=== PATIENT | female | born 1965 | race Caucasian/White ===

== ENCOUNTER 2022-02-04 15:20 | Emergency (ER) | payer OTHER, SELFPAY ==
[2022-02-04 15:21] VITALS: BP 122/82; PULSE 87; RESP 18; TEMP 36.2; O2SAT 98; BMI 24.9
--- NOTE | 2022-02-04 15:42 | CT_ITS ---
HISTORY: dysphagia, odynophagia. TECHNIQUE: Helically acquired images were obtained of the neck after the intravenous administration of 75 mL Isovue 300. A radiation dose optimization technique was used for this scan. 261 images. COMPARISON: None. FINDINGS: NASOPHARYNX: Unremarkable. SUPRAHYOID NECK: Unremarkable oropharynx, oral cavity, parapharyngeal space, and retropharyngeal space. INFRAHYOID NECK: Unremarkable larynx, hypopharynx, and supraglottis. THYROID/SALIVARY GLANDS: Homogeneous. LYMPH NODES: Scattered small nodes without pathologic enlargement. VASCULAR STRUCTURES: Patent bilateral carotid arteries and internal jugular veins. ORBITS: Symmetric contents. PARANASAL SINUSES, MASTOID AIR CELLS: Visualized portions clear. OSSEOUS STRUCTURES: Mild degenerative changes of the cervical spine. Small bone island in the T4 vertebral body. LUNG APICES: Clear. CT/Soft Tissue Neck WITH Contrast IMPRESSION: Unremarkable examination. No acute abnormality identified. Electronically Signed: Dahlia Hernandez MD at 16:56 EDT ,
--- NOTE | 2022-02-04 15:42 | CT_ITS ---
HISTORY: mental status change. TECHNIQUE: Multiple axial images were obtained of the head before and after the intravenous administration of 75 mL Isovue 300. A radiation dose optimization technique was used for this scan. 469 images. COMPARISON: None. FINDINGS: BRAIN PARENCHYMA: No significant attenuation abnormality. No enhancing mass in the brain parenchyma. No acute intra-axial hemorrhage. CSF SPACES: Cerebral ventricles, cortical sulci, and other extra-axial CSF spaces within normal limits in size for patient''s age. No midline shift or other significant mass effect. No acute extra-axial hemorrhage. CALVARIUM: Intact. PARANASAL SINUSES AND MASTOID AIR CELLS: Clear. ORBITS: Unremarkable. CT/Brain/Head W/WO Contrast IMPRESSION: No acute intracranial process or enhancing intracranial mass identified. Electronically Signed: Dahlia Hernandez MD at 16:49 EDT ,
--- NOTE | 2022-02-04 15:48 | EDS_ITS ---
HPI History of Present Illness Chief Complaint: General Illness Informant: patient and family Onset/Context/Timing Onset: Month(s) (4-5) Context: Gradual Onset Timing: Intermittent Quality: sore lump in neck Current Severity: Gone Maximum Severity: Moderate Worsened by: unk Relieved by: unk Associated Symptoms Associated Symptoms: inappropriate laughing outbursts, trouble swallowing Narrative Narrative: Family brings in patient, unsure what else to do. She has had for 5 months worth of problems swallowing, which is sometimes painful and other times results and inability to get pills or food down, and occasional painful lump that occurs on the right side of the neck but is not there currently, occasional discomfort pointing at the manubrium, and for the past year or so, inappropriate outbursts of laughing. For the last 2 months or so, her affect has really changed, and she has had a significant decline, being relatively altered. She states they went to the family doctor, they did some blood work and a thyroid uptake test that was unremarkable, they were referred to a specialist of unknown specialty, but before they went there they decided to come here to request some imaging. She has never had any medical problems and is always been healthy, and this decline is new and very abnormal. PFSH PFSH Medical History no medical history no medical history Home Medications NK 02/04/22 [History Last Taken Unknown] Allergy/AdvReac Type Severity Reaction Status Date / Time No Known Allergies Allergy Verified 02/04/22 15:21 Surgical History no surgical history no surgical history Social History Smoking Status: Never smoker ROS ROS ED Constitutional Constitutional ED: Reports anorexia, weight loss and other Details: Hair loss ; Denies chills or fever(s) Eyes Eyes: Denies change in vision or diplopia ENT ENT ED: Reports as per HPI, dysphagia, hoarseness and neck mass; Denies rhinorrhea or sore throat Cardiovascular Cardiovascular: Denies chest pain or palpitations Respiratory/Chest Respiratory/Chest: Denies cough or dyspnea Gastrointestinal Gastrointestinal: Denies abdominal pain, diarrhea, nausea or vomiting Genitourinary Genitourinary ED: Denies dysuria or hematuria Musculoskeletal Musculoskeletal: Denies back pain or neck pain Integumentary Denies abscess or rash Neurologic Neurologic: Denies headache(s), paresthesias or weakness Psychiatric Psychiatric: Reports as per HPI and behavioral changes; Denies anxiety or suicidal thoughts EXAM Physical Exam Const Vital Signs: 02/04/22 15:21 02/04/22 16:26 Temperature 97.2 F L Temperature Source Temporal Pulse Rate 87 Respiratory Rate 18 Respiratory Effort Normal Respiratory Pattern Normal Blood Pressure 122/82 H Blood Pressure Mean 95 Pulse Ox 98 Oxygen Delivery Method Room Air Positive well nourished and well developed General Appearance ED: well developed and NAD HEENT Reports moist mucous membranes HEENT Narrative: Patchy alopecia normocephalic and atraumatic Mouth ED: Yes lips normal and Yes tongue normal Mouth: lips normal, tongue normal and other Other Details: No sublingual edema/tenderness/fullness Throat: posterior oropharynx normal, tonsils normal and uvula midline Eyes PERRL and EOMs intact bilaterally Neck full ROM, no lymphadenopathy, supple, no meningeal signs and thyroid normal Resp normal respiratory effort and clear to auscultation bilaterally Cardio regular rate, regular rhythm and no murmurs GI non-tender and non-distended Auscultation: normoactive bowel sounds Palpation: soft Back/Spine no CVA tenderness General Back: other FROM Extremity normal to inspection General Extremety ED: Negative for edema, pulses abnormal or tenderness General Extremity: Negative for edema or pulses abnormal Neuro oriented x3, CN's II-XII intact bilaterally and no sensory deficits noted Neuro Narrative: Disoriented to time and age, otherwise NIHSS is unremarkable for a total score of 2. Sensorium / Orientation: awake and alert Motor Exam: strength 5/5 throughout Psych Psych Narrative: Odd, flat affect. Skin no rashes or lesions noted and no wounds MDM MDM MDM Narrative Medical decision making narrative: Patient displayed symptoms of pseudobulbar affect, differential diagnosis with this and some of her other symptoms is wide and does include dementia/Alzheimer's in addition to ALS, brain masses, epilepsy, MS, neurosyphilis felt to be less likely, Parkinson's although she does not have a resting tremor at this time, progressive supranuclear palsy, strokes, and also has been seen in cases of Unruly disease; this is not an exclusive list I am sure. I performed labs as well as thyroid function all of that was normal. I also did a CT of the head and neck soft tissues both with IV contrast. They were normal. That rules out etiologies such as brain masses and stroke, I think she needs to follow-up, she may need an outpatient MRI to rule out some of these other etiologies, although dementia would be high on my list. I discussed this with her and family. Lab Data Attestation: I reviewed the patient's lab results. Labs: Laboratory Results - last 24 hr 02/04/22 02/04/22 16:00 16:00 WBC 5.8 RBC 4.00 L Hgb 13.0 Hct 37.8 MCV 94.5 MCH 32.5 H MCHC 34.4 RDW Std Deviation 42.5 RDW Coeff of Bryce 12.2 Plt Count 276 MPV 10.1 Immature Gran % (Auto) 0.200 Neut % (Auto) 57.2 Lymph % (Auto) 34.9 [place] % (Auto) 6.5 Eos % (Auto) 0.7 Baso % (Auto) 0.5 Absolute Neuts (auto) 3.3 Absolute Lymphs (auto) 2.03 Nucleated RBC % 0 Sodium 141 Potassium 3.8 Chloride 110 H Carbon Dioxide 26.0 Anion Gap 5 BUN 15 Creatinine 0.92 Estim Creat Clear Calc 47.88 Est GFR (MDRD) Af Amer 81 Est GFR (MDRD) Non-Af 67 BUN/Creatinine Ratio 16.3 Glucose 101 Calcium 9.2 TSH 2.18 Free T4 1.17 Radiography Diagnostic Testing: Clinical Impression(s) from Imaging Studies Brain CT 02/04/22 15:42 IMPRESSION: No acute intracranial process or enhancing intracranial mass identified. Electronically Signed: Dahlia Hernandez MD at 16:49 EDT Reading Location ID and State: [facility] / [place] Tel , Service support , Soft Tissue Neck CT 02/04/22 15:42 IMPRESSION: Unremarkable examination. No acute abnormality identified. Electronically Signed: Dahlia Hernandez MD at 16:56 EDT , Discharge Plan Triage Chief Complaint: General Illness ED Provider: Jaswinder Womack Dx/Rx/DC Orders Clinical Impression: PBA (pseudobulbar affect), Dysphagia, Altered mental status, Intermittent headache Instructions: ED DEMENTIA Alzheimer's, ED Confusion Prescriptions: No Action NK RF: 0 Primary Care Provider: Travis Harris Referrals: Travis Harris, [Primary Care Provider] - As soon as possible Disposition Disposition: Home, Self Care
[2022-02-04 16:17] LABS: Absolute Lymphocyte Count 2.03 X10^3/uL (0.83-4.51); Absolute Neutrophil Count 3.3 X10^3/uL (2.0-7.7); Basophil# 0.03 X10^3/uL; Basophil% 0.5 % (0-1); Eosinophil# 0.04 X10^3/uL; Eosinophils% 0.7 % (0-5); Hematocrit 37.8 % (37-47); Lymphocyte # 2.03 X10^3/ul (0.83-4.51); Lymphocyte % 34.9 % (19-41); Mean Corp Hgb Conc 34.4 g/dL (32-36); Mean Corpuscular Hgb 32.5 pg (27.0-32.0); Mean Corpuscular Volume 94.5 fL (81-99); Mean Platelet Vol. 10.1 fl (6.2-12.0); Monocyte# 0.38 X10^3/uL; Monocyte% 6.5 % (0-10); NRBC Flagged by Analyzer 0 % (0-5); Neutrophil # 3.33 X10^3/uL (2.7-7.7); Neutrophil % 57.2 % (47-70); Platelet Count 276 K/mm3 (150-450); RBC Distribution Width CV 12.2 % (11.6-14.6); RBC Distribution Width SD 42.5 fl (35.1-43.9); White Blood Count 5.8 K/mm3 (4.4-11.0)
[2022-02-04 16:47] LABS: Anion Gap 5 (5-15); BUN 15 mg/dL (7-18); BUN/Creat Ratio 16.3 RATIO (10-20); Calcium,Total 9.2 mg/dL (8.5-10.1); Chloride 110 mmol/L (98-107); Creatinine, Serum 0.92 mg/dL (0.55-1.02); EST Glomerular Filtration Rate 67 mL/min (>60); Est Glom Filt Rate - Afr Amer 81 mL/min (>60); Estimated Creatinine Clearance 47.88 ml/min; Glucose 101 mg/dL (74-106); Potassium 3.8 mmol/L (3.5-5.1); Sodium Level 141 mmol/L (136-145); T4 Free Direct 1.17 ng/dL (0.76-1.46); Thyroid Stim Hormone (TSH) 2.18 uIU/mL (0.358-3.74)
[2022-02-04] MEDS: 0.9% Normal Saline 1,000 ML 999 ML IV (17:02)
[2022-02-04 18:03] VITALS: BP 134/78; PULSE 75; RESP 16; O2SAT 99
[2022-02-04 18:06] LABS: T3 Total - Triiodothyronine 0.98 ng/mL (0.6-1.81)
== END 2022-02-04 18:04 | disposition home or self-care (01) ==
PROVIDERS: Emergency Provider Emergency Medicine; PCP Family Medicine; Visit Provider Emergency Medicine
DX: F48.2 Pseudobulbar affect (principal); R13.10 Dysphagia, unspecified; R51.9 Headache, unspecified; R41.82 Altered mental status, unspecified
CPT/HCPCS: 70470; 70491; 80048; 84439; 84443; 84480; 85025; 96360; 99283; J7030; Q9967; A4216

== ENCOUNTER → 2022-02-11 | Outpatient (CLI) | payer SELFPAY, OTHER ==
--- NOTE | 2022-02-11 06:38 | MRI_ITS ---
EXAM: MR HEAD WITHOUT AND WITH INTRAVENOUS CONTRAST CLINICAL INDICATION: ALTERED MENTAL STATUS, PSUEDOBULBAR AFFECT, ?MS TECHNIQUE: Multiplanar and multisequence MR images of the brain were obtained without and with intravenous contrast. This report was created using [employer] report Loco2 technology. CONTRAST: 15ML IV DOTAREM COMPARISON: CT brain February 04, 2022 FINDINGS: BRAIN AND EXTRA-AXIAL SPACES: Unremarkable. No intra- or extra-axial hemorrhage. No evidence of acute infarct. No intracranial mass or mass effect. There is preservation of the ryan/white matter interface. Posterior fossa structures are unremarkable. Ventricles are appropriate for age. No hydrocephalus. Basal cisterns are patent. No abnormal contrast enhancement. SELLA: Unremarkable. Normal sella turcica, pituitary gland, infundibular stalk, optic chiasm and hypothalamus. AUDITORY SYSTEM: Unremarkable. The internal auditory canals are patent. BONES/JOINTS: Unremarkable. No discrete lytic or blastic abnormalities. SINUSES: Unremarkable as visualized. Clear. MASTOID AIR CELLS: Unremarkable as visualized. Clear. ORBITS: Unremarkable as visualized. Both globes, extraocular muscles, optic nerves and retrobulbar fat appear unremarkable. VASCULATURE: Unremarkable as visualized. Normal flow voids in the major intracranial circulation. MRI/Brain W/WO Contrast IMPRESSION: No acute intracranial abnormality. Electronically Signed: Temo Goodman MD at 14:21 EDT ,
== END | disposition home or self-care (01) ==
LOC: MRI 06:33
PROVIDERS: PCP Family Medicine; Referring Provider Emergency Medicine; Visit Provider Emergency Medicine
DX: R41.82 Altered mental status, unspecified (principal); F48.2 Pseudobulbar affect
CPT/HCPCS: 70553; A9575

== ENCOUNTER → 2022-03-18 | Outpatient (CLI) | payer OTHER, SELFPAY | END | disposition home or self-care (01) | LOC: RAD 12:50 | PROVIDERS: PCP Family Medicine; Visit Provider Psychiatry & Neurology Neurology | DX: R13.10 Dysphagia, unspecified (principal); G20 Parkinson's disease; F03.90 Unspecified dementia, unspecified severity, without behavioral disturbance, psychotic disturbance, mood disturbance, and anxiety | CPT/HCPCS: 74230 ==

== ENCOUNTER 2022-04-03 09:30 | Outpatient (RCR) | payer SELFPAY, OTHER ==
--- NOTE | 2022-03-18 12:07 | ST.MBS ---
Modified Barium Swallow - Patient Information Study Date: 03/18/22 Study Time: 13:00 Direct Billable Minutes: 90 Total Minutes procedure & reportin Diagnosis: Parkinson's disease (G20) Referring Physician: Rich Rosas Reason for Referral: Objectively assess swallow function, risk for aspiration, and determine recommendations for least restrictive diet textures and compensatory strategies to improve safety of swallow. Medical History: The patient is an 56-year-old female with PMH including febrile seizure during infancy and developmental motor and cognitive delays. 03/07/2022 she saw neurologist, Dr. Rosas, who diagnosed her with PD. Since 2018, she has exhibited a cognitive decline from her baseline per family. She also presented to neurologist with fatigue, masklike face, and motor restlessness. In September 2021, she began experiencing daily headaches. She also has had increased difficulty swallowing, throat pain, drooling and weight loss (16 lbs in the last 2 months). She was seen by an ENT about throat pain and the evaluation was unremarkable per the patient's family. In addition, the patient has recently had episodes of inappropriate laughter. She was referred for a MBSS by her neurologist to evaluate swallow function due to concerns for difficulty with coordination swallowing. Per pt's caregiver, Shayla Hernandez, Radha has had coughing with food and drink at home. She sometimes feels that food or medications are stuck in her throat. No hx of PNA, but the patient has been more ill in the past year than she typically is. She takes medication with pulpy OJ. Current Diet Ordered: Regular / Thin Dentition: WNL Mental Status: WNL Respiratory Status: Oxygenating on Room Air - Penetration-Aspiration Scale Penetration-Aspiration Scale: OBJECTIVE ASSESSMENT OF SWALLOW FUNCTION (QUANTITATIVE ? PER TRIAL): PENETRATION / ASPIRATION SCALE (GARCIA): 1 = does not enter airway 2 = enters airway/above vocal folds/ejected 3 = enters airway/above vocal folds/not ejected 4 = enters airway/contacts vocal folds/ejected 5 = enters airway/contacts vocal folds/not ejected 6 = enters airway/below vocal folds/ejected 7 = enters airway/below vocal folds/not ejected despite effort 8 = enters airway/below vocal folds/no effort VIDEOFLOROSCOPIC SCALE SCORE (GARCIA): Grade I = aspiration of material that has penetrated into the laryngeal vestibule, intact cough reflex Grade II = aspiration < 10 % of the bolus, intact cough reflex Grade III = aspiration of < 10 % of the bolus, reduced cough reflex or aspiration of > 10 % of the bolus, intact cough reflex Grade IV = aspiration of > 10 % of the bolus, reduced cough reflex - Penetration-Aspiration Scale Score Thin Liquid via teaspoon Result: 7= enters airways/below vocal folds/not ejected despite effort Comment: Grade III = aspiration of < 10 % of the bolus, reduced cough reflex Thin Liquid via teaspoon Trial 2 Result: 1= does not enter airway Thin Liquid via small single sip from cup Result: 1= does not enter airway Thin Liquid via sequential sips from cup Result: 5= enters airways/contacts vocal folds/not ejected [place] Thick Liquid via small single sip from cup Result: 1= does not enter airway - Post prandial penetration of nectar thick liquids visible during next trial. Honey Thick Liquid via small single sip from cup Result: 3= enters airways/above vocal folds/not ejected Pudding via teaspoon with esophageal screen Result: 1= does not enter airway 1/2 Cookie Result: 1= does not enter airway Thin Liquid via single sip from straw Result: 5= enters airways/contacts vocal folds/not ejected - cued cough and re-swallow to clear laryngeal vestibule of residue, weak volitional cough Thin Liquid via small single sip from cup Trial 2 Result: 1= does not enter airway - Post prandial penetration observed in following trial Barium Tablet with water Comment: Could not score - tablet did not clear from the patient's oral cavity. Barium Tablet with pudding Result: 1= does not enter airway - Cleared from oral cavity with 2 swallows Thin Liquid via small single sip from cup Effortful swallow Result: 3= enters airways/above vocal folds/not ejected [place] Thick Liquid via teaspoon Result: 1= does not enter airway [place] Thick Liquid via teaspoon Trial 2 Result: 2= enter airway/above vocal folds/ejected - Oral Phase Labial Seal: No Labial Escape Tongue Control During Bolus Hold: Posterior escape of less than half of bolus Bolus Preparation/Mastication: Slow prolonged chewing/mashing with complete recollection Bolus Transport/Lingual Motion: Slowed tongue motion Oral Residue: Residue collection on oral structures - Pharyngeal Phase Initiation of Pharyngeal Swallow: Bolus head at posterior laryngeal surgace of epiglottis Soft Palate Elevation: No bolus between soft palate and pharyngeal wall Laryngeal Elevation: Partial superior movement thyroid cart/partial apprx aryt-epig petiole Anterior Hyoid Excursion: Partial anterior movement Epiglottic Movement: Complete inversion Laryngeal Vestibule Closure at Height of Swallow: Incomplete; narrow column of air/contrast in laryngeal vestibule Pharyngeal Stripping Wave: Present - complete Pharyngoesophageal Segment Opening: Parital distension and partial duration; parital obstruction of flow Tongue Base Retraction: Narrow column of contrast between tongue base & post. pharyngeal wall Pharyngeal Residue: Collection of residue within or on pharyngeal structures - Esophageal Phase Esophageal Clearance: Complete clearance - Treatment Strategies Effects of treatment strategies attemped:: Effortful swallow = Not effective. Cough and re-swallow = Somewhat effective to clear the laryngeal vestibule of contrast. - Diagnosis/Impression Diagnosis: Mild-moderate oropharyngeal phase dysphagia (R13.12) Impression: The oral phase is phase is marked by... -Prolonged, but effective mastication. -Mildly decreased bolus control with premature posterior loss to the posterior surface of the epiglottis, most notable with thin liquid trials. -Slowed tongue motion for A-P transport. -Trace-mild oral residues after the swallow. -Need for two swallows to clear barium tablet from oral cavity when provided in a bite of pudding. The pharyngeal phase is marked by... -Decreased airway closure due to decreased laryngeal elevation and anterior hyoid excursion. -Collection of pharyngeal residue after the swallow, especially noted in the pyriforms likely due to decreased UES opening/duration. -Mildly decreased tongue base retraction. -Aspiration of thin liquid by tsp. Laryngeal penetration of thin liquid via sequential sips via cup and honey thick liquid by cup that did not fully eject from the laryngeal vestibule. Post prandial laryngeal penetration of nectar thick liquid and thin liquid by cup. SEE PAS scores above for full details regarding laryngeal penetration and aspiration. - Recommendations Diet: Thin Liquids - Easy to Chew Textures (IDDSI Level 7) Comment: [place] Free Water Protocol Compensatory Strategies: Small Bites, Small Sips, Liquid by Teaspoon Only, Slow Rate, Sitting upright Supervision: 1:1 Close Supervision Recommend Repeat Modified Barium Swallow: Yes Comment: Repeat MBS study in 4-8 weeks after implementation of oropharyngeal exercise program. Need for Skilled Speech Therapy Services: Yes Comment: Will recommend the patient for outpatient dysphagia therapy to address deficits in oropharyngeal swallow function. Would consider the patient for oropharyngeal strengthening to improve lingual strength, tongue base retraction, hyolaryngeal elevation/excursion, and duration of UES opening (lingual resistance exercises, CTAR, Caden, and Yancy). The patient would benefit from thorough education regarding diet recommendations, [place] Free Water Protocol, and recommended compensatory strategies. Education Completed: 1. Described result of evaluation. - Thoroughly discussed results and recommendation and provided the patient's caregiver a handout regarding FFWP and diet recommendations, including aspiration precautions and supervision needs. Education well received., 4. Family/caregivers understand evaluation & agree w/ goals & tx plan., 7. Pt requires further education on strategies & risks. - Status Active ST Patient: Active - Contact Information [facility] Speech Therapy:: Jeimy Lamb M.A. [facility] Speech-Language Pathologist [facility] [address] [place] [address] [email or web address] [phone] 03/18/22 12:16
--- NOTE | 2022-03-20 17:44 | ST ---
Addendum entered and electronically signed by Hari Lynne M.A., [facility] 03/22/22 08:44: - Penetration-Aspiration Scale Score Thin Liquid via teaspoon Result: 7= enters airways/below vocal folds/not ejected despite effort Comment: Grade III = aspiration of < 10 % of the bolus, reduced cough reflex Thin Liquid via teaspoon Trial 2 Result: 1= does not enter airway Thin Liquid via small single sip from cup Result: 1= does not enter airway Thin Liquid via sequential sips from cup Result: 5= enters airways/contacts vocal folds/not ejected [place] Thick Liquid via small single sip from cup Result: 1= does not enter airway - Post prandial penetration of nectar thick liquids visible during next trial. Honey Thick Liquid via small single sip from cup Result: 3= enters airways/above vocal folds/not ejected Pudding via teaspoon with esophageal screen Result: 1= does not enter airway 1/2 Cookie Result: 1= does not enter airway - Oral Phase Labial Seal: No Labial Escape Tongue Control During Bolus Hold: Posterior escape of less than half of bolus Bolus Preparation/Mastication: Slow prolonged chewing/mashing with complete recollection Bolus Transport/Lingual Motion: Slowed tongue motion Oral Residue: Residue collection on oral structures - Pharyngeal Phase Initiation of Pharyngeal Swallow: Bolus head at posterior laryngeal surgace of epiglottis Soft Palate Elevation: No bolus between soft palate and pharyngeal wall Laryngeal Elevation: Partial superior movement thyroid cart/partial apprx aryt-epig petiole Anterior Hyoid Excursion: Partial anterior movement Epiglottic Movement: Complete inversion Laryngeal Vestibule Closure at Height of Swallow: Incomplete; narrow column of air/contrast in laryngeal vestibule Pharyngeal Stripping Wave: Present - complete Pharyngoesophageal Segment Opening: Parital distension and partial duration; parital obstruction of flow Tongue Base Retraction: Narrow column of contrast between tongue base & post. pharyngeal wall Pharyngeal Residue: Collection of residue within or on pharyngeal structures - Esophageal Phase Esophageal Clearance: Complete clearance - Treatment Strategies Effects of treatment strategies attemped:: Effortful swallow = Not effective. Cough and re-swallow = Somewhat effective to clear the laryngeal vestibule of contrast. - Diagnosis/Impression Diagnosis: Mild-moderate oropharyngeal phase dysphagia (R13.12) Impression: The oral phase is phase is marked by... -Prolonged, but effective mastication. -Mildly decreased bolus control with premature posterior loss to the posterior surface of the epiglottis, most notable with thin liquid trials. -Slowed tongue motion for A-P transport. -Trace-mild oral residues after the swallow. -Need for two swallows to clear barium tablet from oral cavity when provided in a bite of pudding. The pharyngeal phase is marked by... -Decreased airway closure due to decreased laryngeal elevation and anterior hyoid excursion. -Collection of pharyngeal residue after the swallow, especially noted in the pyriforms likely due to decreased UES opening/duration. -Mildly decreased tongue base retraction. -Aspiration of thin liquid by tsp. Laryngeal penetration of thin liquid via sequential sips via cup and honey thick liquid by cup that did not fully eject from the laryngeal vestibule. Post prandial laryngeal penetration of nectar thick liquid and thin liquid by cup. SEE PAS scores above for full details regarding laryngeal penetration and aspiration. - Recommendations Diet: Thin Liquids - Easy to Chew Textures (IDDSI Level 7) Comment: [place]redia Free Water Protocol Compensatory Strategies: Small Bites, Small Sips, Liquid by Teaspoon Only, Slow Rate, Sitting upright Supervision: 1:1 Close Supervision Recommend Repeat Modified Barium Swallow: Yes Comment: Repeat MBS study in 4-8 weeks after implementation of oropharyngeal exercise program. Need for Skilled Speech Therapy Services: Yes Comment: Will recommend the patient for outpatient dysphagia therapy to address deficits in oropharyngeal swallow function. Would consider the patient for oropharyngeal strengthening to improve lingual strength, tongue base retraction, hyolaryngeal elevation/excursion, and duration of UES opening (lingual resistance exercises, CTAR, Caden, and Yancy). The patient would benefit from thorough education regarding diet recommendations, Heredia Free Water Protocol, and recommended compensatory strategies. Education Completed: 1. Described result of evaluation. - Thoroughly discussed results and recommendation and provided the patient's caregiver a handout regarding FFWP and diet recommendations, including aspiration precautions and supervision needs. Education well received., 4. Family/caregivers understand evaluation & agree w/ goals & tx plan., 7. Pt requires further education on strategies & risks. Original Note: [facility] Speech Pathology [address] [place] [address] Modified Barium Swallow Study MR#: [id number] Acct: [id number] Name: RADHA COX Rep #: [id number] : 1965 56 From: Jeimy Lamb M.A., [facility] Modified Barium Swallow - Patient Information Study Date: 03/18/22 Study Time: 13:00 Direct Billable Minutes: 90 Total Minutes procedure & reportin Diagnosis: Parkinson's disease (G20) Referring Physician: Rich Rosas Reason for Referral: Objectively assess swallow function, risk for aspiration, and determine recommendations for least restrictive diet textures and compensatory strategies to improve safety of swallow. Medical History: The patient is an 56-year-old female with PMH including febrile seizure during infancy and developmental motor and cognitive delays. 03/07/2022 she saw neurologist, Dr. Rosas, who diagnosed her with PD. Since 2018, she has exhibited a cognitive decline from her baseline per family. She also presented to neurologist with fatigue, masklike face, and motor restlessness. In September 2021, she began experiencing daily headaches. She also has had increased difficulty swallowing, throat pain, drooling and weight loss (16 lbs in the last 2 months). She was seen by an ENT about throat pain and the evaluation was unremarkable per the patient's family. In addition, the patient has recently had episodes of inappropriate laughter. She was referred for a MBSS by her neurologist to evaluate swallow function due to concerns for difficulty with coordination swallowing. Per pt's caregiver, Shayla Hernandez, Radha has had coughing with food and drink at home. She sometimes feels that food or medications are stuck in her throat. No hx of PNA, but the patient has been more ill in the past year than she typically is. She takes medication with pulpy OJ. Current Diet Ordered: Regular / Thin Dentition: WNL Mental Status: WNL Respiratory Status: Oxygenating on Room Air - Penetration-Aspiration Scale Penetration-Aspiration Scale: OBJECTIVE ASSESSMENT OF SWALLOW FUNCTION (QUANTITATIVE ? PER TRIAL): PENETRATION / ASPIRATION SCALE (GARCIA): 1 = does not enter airway 2 = enters airway/above vocal folds/ejected 3 = enters airway/above vocal folds/not ejected 4 = enters airway/contacts vocal folds/ejected 5 = enters airway/contacts vocal folds/not ejected 6 = enters airway/below vocal folds/ejected 7 = enters airway/below vocal folds/not ejected despite effort 1
--- NOTE | 2022-03-22 08:43 | HP.SP.EV_ITS ---
History - History Date of Eval: 03/18/22 Medical Diagnosis (from RX): Parkinson's Disease, Dysphagia Date of Onset of Diagnosis: 2019 Previous speech therapy: No Other Relevant Medical History/Diagnoses/Surgery: The patient is an 56-year-old left-handed woman with a past medical history of febrile seizure during infancy and developmental motor and cognitive delay. She lives with parents and her sister in law is primary district manager primary care sales. Medications related to this diagnosis: carbidopa 25 mg-levodopa 100 mg tablet (Sinemet) 1 tab PO TID #90 tabs 03/07/22 [Rx Confirmed 03/07/22]. flurbiprofen 100 mg tablet 100 mg PO TID PRN pain #90 tabs 03/07/22 [Rx Confirmed 03/07/22]. ibuprofen 200 mg tablet 200 mg PO Q6H PRN 03/07/22 [History Confirmed 03/07/22] Smoking Status: Never smoker - Pain Is pain an issue with your current prescribed condition?: Yes Patient Allergies - Allergies Allergies No Known Allergies Allergy (Verified 03/07/22 09:41) Subjective Dysphagia - Symptoms Reported Symptoms/Problems with: Coughing, Difficulty Swallowing Liquids, Pain on Swallowing, Hx of Aspiration - Current Diet Solids Current Diet: Soft - Current Diet Liquids Current Liquids: [place] Thick Heredia free water Protocol: Yes Objective Dysphagia - Swallowing Impairment Contributing Factors to Swallowing Impairment: Reduced Alertness or Attention, Difficulty Following Directions, Reduced Laryngeal Excursion - Impact Impact on Safety & Functioning: Risk for Aspiration, Risk for Inadequate Nutrition/Hydration - Recommendations Modified Barium Swallow/Cookie Swallow Recommended: No Swallowing Treatment: Yes - Diet Texture Recommendations Solids: Easy to Chew (Level 7) Liquids: Mildly thick (Level 2, [place]) Heredia free water Protocol: Yes - Safety Saftey Precautions/Swallowing Recommendations (Check all that Apply): 1 to 1 Close Supervision, Small Sips & Bites when Eating, Other (Specify Below) Other: Liquids by teaspoon only, slow rate, sitting upright. - Results Swallowing Within Normal Limits: No Swallowing Diagnosis: Oropharyngeal Phase Dysphagia (R13.12) Severity: Moderate Modified Barium Results Hx MBS Results (from prior exam): 03/20/22 17:44 Speech Therapy by Hari Lynne [facility] Speech Pathology [address] [place] [address] Modified Barium Swallow Study MR#: [id number] Acct: [id number] Name: RADHA COX Rep #: [id number] : 1965 56 From: Jeimy Lamb M.A., [facility] Modified Barium Swallow - Patient Information Study Date: 03/18/22 Study Time: 13:00 Direct Billable Minutes: 90 Total Minutes procedure & reportin Diagnosis: Parkinson's disease (G20) Referring Physician: Rich Rosas Reason for Referral: Objectively assess swallow function, risk for aspiration, and determine recommendations for least restrictive diet textures and compensatory strategies to improve safety of swallow. Medical History: The patient is an 56-year-old female with PMH including febrile seizure during infancy and developmental motor and cognitive delays. 03/07/2022 she saw neurologist, Dr. Rosas, who diagnosed her with PD. Since 2018, she has exhibited a cognitive decline from her baseline per family. She also presented to neurologist with fatigue, masklike face, and motor restlessness. In September 2021, she began experiencing daily headaches. She also has had increased difficulty swallowing, throat pain, drooling and weight loss (16 lbs in the last 2 months). She was seen by an ENT about throat pain and the evaluation was unremarkable per the patient's family. In addition, the patient has recently had episodes of inappropriate laughter. She was referred for a MBSS by her neurologist to evaluate swallow function due to concerns for difficulty with coordination swallowing. Per pt's caregiver, Shayla Hernandez, Radha has had coughing with food and drink at home. She sometimes feels that food or medications are stuck in her throat. No hx of PNA, but the patient has been more ill in the past year than she typically is. She takes medication with pulpy OJ. Current Diet Ordered: Regular / Thin Dentition: WNL Mental Status: WNL Respiratory Status: Oxygenating on Room Air - Penetration-Aspiration Scale Penetration-Aspiration Scale: OBJECTIVE ASSESSMENT OF SWALLOW FUNCTION (QUANTITATIVE ? PER TRIAL): PENETRATION / ASPIRATION SCALE (GARCIA): 1 = does not enter airway 2 = enters airway/above vocal folds/ejected 3 = enters airway/above vocal folds/not ejected 4 = enters airway/contacts vocal folds/ejected 5 = enters airway/contacts vocal folds/not ejected 6 = enters airway/below vocal folds/ejected 7 = enters airway/below vocal folds/not ejected despite effort 1 Initialized on 03/20/22 17:44 - END OF NOTE Swallowing Performance Scale - Swallowing Performance Scale Swallowing Performance Scale Result: 5 Moderate Plan - Plan Plan: Speech therapy is warranted for deficits in swallowing presented by mild to moderate oropharyngeal phase dysphagia as well as reduced volume due to Parkinson's disease. - Recommendations Treatment Warranted: Yes Treatment Warranted: Dysphagia, Voice - Progress Prognosis: Good - Frequency Frequency: 1x/Week Duration: 6 Weeks Visits in this POC: 6 - Goal #1-5 Goal #1: The Patient will tolerate the least restrictive means of nutrition to facilitate adequate hydration/nutrition with optimum safety and efficiency of swallowing function during P.O. intake without overt signs and symptoms of aspiration. Goal #2: The Patient will demonstrate and utilize recommended velopharyngeal and oropharyngeal strengthening exercises to facilitate improved velopharyngeal and oropharyngeal strength and coordination with minimal cueing and prompting provide by the clinician, across 3 to 3 sessions. Goal #3: Voice evaluation. Education - Patient has Indicated that the Following Identified Educational Needs: Language Barrier, Cognitively Impaired - Patient Instruction Patient Education: Diagnosis, Treatment Plan, Diet Level Person Taught: Patient, Family Teaching Method: Discussion Response to teaching: Return demonstration
--- NOTE | 2022-03-22 08:51 | HP.SP.EV_ITS ---
History - History Date of Eval: 03/18/22 Medical Diagnosis (from RX): Parkinson's Disease, Dysphagia Date of Onset of Diagnosis: 2019 Previous speech therapy: No Other Relevant Medical History/Diagnoses/Surgery: The patient is an 56-year-old left-handed woman with a past medical history of febrile seizure during infancy and developmental motor and cognitive delay. She lives with parents and her sister in law is primary resident care supervisor. Medications related to this diagnosis: carbidopa 25 mg-levodopa 100 mg tablet (Sinemet) 1 tab PO TID #90 tabs 03/07/22 [Rx Confirmed 03/07/22]. flurbiprofen 100 mg tablet 100 mg PO TID PRN pain #90 tabs 03/07/22 [Rx Confirmed 03/07/22]. ibuprofen 200 mg tablet 200 mg PO Q6H PRN 03/07/22 [History Confirmed 03/07/22] Smoking Status: Never smoker - Pain Is pain an issue with your current prescribed condition?: Yes Patient Allergies - Allergies Allergies No Known Allergies Allergy (Verified 03/07/22 09:41) Subjective Dysphagia - Symptoms Reported Symptoms/Problems with: Coughing, Difficulty Swallowing Liquids, Pain on Swallowing, Hx of Aspiration - Current Diet Solids Current Diet: Soft - Current Diet Liquids Current Liquids: [place] Thick Heredia free water Protocol: Yes Objective Dysphagia - Swallowing Impairment Contributing Factors to Swallowing Impairment: Reduced Alertness or Attention, Difficulty Following Directions, Reduced Laryngeal Excursion - Impact Impact on Safety & Functioning: Risk for Aspiration, Risk for Inadequate Nutrition/Hydration - Recommendations Modified Barium Swallow/Cookie Swallow Recommended: No Swallowing Treatment: Yes - Diet Texture Recommendations Solids: Easy to Chew (Level 7) Liquids: Mildly thick (Level 2, [place]) Heredia free water Protocol: Yes - Safety Saftey Precautions/Swallowing Recommendations (Check all that Apply): 1 to 1 Close Supervision, Small Sips & Bites when Eating, Other (Specify Below) Other: Liquids by teaspoon only, slow rate, sitting upright. - Results Swallowing Within Normal Limits: No Swallowing Diagnosis: Oropharyngeal Phase Dysphagia (R13.12) Severity: Moderate Modified Barium Results Hx MBS Results (from prior exam): 03/20/22 17:44 Speech Therapy by Hari Lynne Addendum entered and electronically signed by Hari Lynne M.A., [facility] OPERATOR 03/22/22 08:44: - Penetration-Aspiration Scale Score Thin Liquid via teaspoon Result: 7= enters airways/below vocal folds/not ejected despite effort Comment: Grade III = aspiration of < 10 % of the bolus, reduced cough reflex Thin Liquid via teaspoon Trial 2 Result: 1= does not enter airway Thin Liquid via small single sip from cup Result: 1= does not enter airway Thin Liquid via sequential sips from cup Result: 5= enters airways/contacts vocal folds/not ejected [place] Thick Liquid via small single sip from cup Result: 1= does not enter airway - Post prandial penetration of nectar thick liquids visible during next trial. Honey Thick Liquid via small single sip from cup Result: 3= enters airways/above vocal folds/not ejected Pudding via teaspoon with esophageal screen Result: 1= does not enter airway 1/2 Cookie Result: 1= does not enter airway - Oral Phase Labial Seal: No Labial Escape Tongue Control During Bolus Hold: Posterior escape of less than half of bolus Bolus Preparation/Mastication: Slow prolonged chewing/mashing with complete recollection Bolus Transport/Lingual Motion: Slowed tongue motion Oral Residue: Residue collection on oral structures - Pharyngeal Phase Initiation of Pharyngeal Swallow: Bolus head at posterior laryngeal surgace of epiglottis Soft Palate Elevation: No bolus between soft palate and pharyngeal wall Laryngeal Elevation: Partial superior movement thyroid cart/partial apprx aryt- epig petiole Anterior Hyoid Excursion: Partial anterior movement Epiglottic Movement: Complete inversion Laryngeal Vestibule Closure at Height of Swallow: Incomplete; narrow column of air/contrast in laryngeal vestibule Pharyngeal Stripping Wave: Present - complete Pharyngoesophageal Segment Opening: Parital distension and partial duration; parital obstruction of flow Tongue Base Retraction: Narrow column of contrast between tongue base & post. pharyngeal wall Pharyngeal Residue: Collection of residue within or on pharyngeal structures - Esophageal Phase Esophageal Clearance: Complete clearance - Treatment Strategies Effects of treatment strategies attemped:: Effortful swallow = Not effective. Cough and re-swallow = Somewhat effective to clear the laryngeal vestibule of contrast. - Diagnosis/Impression Diagnosis: Mild-moderate oropharyngeal phase dysphagia (R13.12) Impression: The oral phase is phase is marked by... -Prolonged, but effective mastication. -Mildly decreased bolus control with premature posterior loss to the posterior surface of the epiglottis, most notable with thin liquid trials. -Slowed tongue motion for A-P transport. -Trace-mild oral residues after the swallow. -Need for two swallows to clear barium tablet from oral cavity when provided in a bite of pudding. The pharyngeal phase is marked by... -Decreased airway closure due to decreased laryngeal elevation and anterior hyoid excursion. -Collection of pharyngeal residue after the swallow, especially noted in the pyriforms likely due to decreased UES opening/duration. -Mildly decreased tongue base retraction. -Aspiration of thin liquid by tsp. Laryngeal penetration of thin liquid via sequential sips via cup and honey thick liquid by cup that did not fully eject from the laryngeal vestibule. Post prandial laryngeal penetration of nectar thick liquid and thin liquid by cup. SEE PAS scores above for full details regarding laryngeal penetration and aspiration. - Recommendations Diet: Thin Liquids - Easy to Chew Textures (IDDSI Level 7) Comment: Heredia Free Water Protocol Compensatory Strategies: Small Bites, Small Sips, Liquid by Teaspoon Only, Slow Rate, Sitting upright Supervision: 1:1 Close Supervision Recommend Repeat Modified Barium Swallow: Yes Comment: Repeat MBS study in 4-8 weeks after implementation of oropharyngeal exercise program. Need for Skilled Speech Therapy Services: Yes Comment: Will recommend the patient for outpatient dysphagia therapy to address deficits in oropharyngeal swallow function. Would consider the patient for oropharyngeal strengthening to improve lingual strength, tongue base retraction, hyolaryngeal elevation/excursion, and duration of UES opening (lingual resistance exercises, CTAR, Caden, and Yancy). The patient would benefit from thorough education regarding diet recommendations, Heredia Free Water Protocol, and recommended compensatory strategies. Education Completed: 1. Described result of evaluation. - Thoroughly discussed results and recommendation and provided the patient's caregiver a handout regarding FFWP and diet recommendations, including aspiration precautions and supervision needs. Education well received., 4. Family/caregivers understand evaluation & agree w/ goals & tx plan., 7. Pt requires further education on strategies & risks. Original Note: [facility] Speech Pathology [address] [place] [address] Modified Barium Swallow Study MR#: [id number] Acct: [id number] Name: RADHA COX Rep #: [id number] : [id number] From: Jeimy Lamb M.A., [facility] OPER[facility] Modified Barium Swallow - Patient Information Study Date: 03/18/22 Study Time: 13:00 Direct Billable Minutes: 90 Total Minutes procedure & reportin Diagnosis: Parkinson's disease (G20) Referring Physician: Rich Rosas Reason for Referral: Objectively assess swallow function, risk for aspiration, and determine recommendations for least restrictive diet textures and compensatory strategies to improve safety of swallow. Medical History: The patient is an 56-year-old female with PMH including febrile seizure during infancy and developmental motor and cognitive delays. 03/07/2022 she saw neurologist, Dr. Rosas, who diagnosed her with PD. Since 2018, she has exhibited a cognitive decline from her baseline per family. She also presented to neurologist with fatigue, masklike face, and motor restlessness. In September 2021, she began experiencing daily headaches. She also has had increased difficulty swallowing, throat pain, drooling and weight loss (16 lbs in the last 2 months). She was seen by an ENT about throat pain and the evaluation was unremarkable per the patient's family. In addition, the patient has recently had episodes of inappropriate laughter. She was referred for a MBSS by her neurologist to evaluate swallow function due to concerns for difficulty with coordination swallowing. Per pt's caregiver, Shayla Hernandez, Radha has had coughing with food and drink at home. She sometimes feels that food or medications are stuck in her throat. No hx of PNA, but the patient has been more ill in the past year than she typically is. She takes medication with pulpy OJ. Current Diet Ordered: Regular / Thin Dentition: WNL Mental Status: WNL Respiratory Status: Oxygenating on Room Air - Penetration-Aspiration Scale Penetration-Aspiration Scale: OBJECTIVE ASSESSMENT OF SWALLOW FUNCTION (QUANTITATIVE ? PER TRIAL): PENETRATION / ASPIRATION SCALE (GARCIA): 1 = does not enter airway 2 = enters airway/above vocal folds/ejected 3 = enters airway/above vocal folds/not ejected 4 = enters airway/contacts vocal folds/ejected 5 = enters airway/contacts vocal folds/not ejected 6 = enters airway/below vocal folds/ejected 7 = enters airway/below vocal folds/not ejected despite effort 1 Electronically signed by Hari Lynne M.A., [facility] OPER[facility] on 03/20/22 17:44 Initialized on 03/20/22 17:44 - END OF NOTE Swallowing Performance Scale - Swallowing Performance Scale Swallowing Performance Scale Result: 4 Mild to Moderate Plan - Plan Plan: Speech therapy is warranted for deficits in swallowing presented by mild to moderate oropharyngeal phase dysphagia as well as reduced volume due to Parkinson's disease. - Recommendations Treatment Warranted: Yes Treatment Warranted: Dysphagia, Voice - Progress Prognosis: Good - Frequency Frequency: 1x/Week Duration: 6 Weeks Visits in this POC: 6 - Goal #1-5 Goal #1: The Patient will tolerate the least restrictive means of nutrition to facilitate adequate hydration/nutrition with optimum safety and efficiency of swallowing function during P.O. intake without overt signs and symptoms of aspiration. Goal #2: The Patient will demonstrate and utilize recommended velopharyngeal and oropharyngeal strengthening exercises to facilitate improved velopharyngeal and oropharyngeal strength and coordination with minimal cueing and prompting provide by the clinician, across 3 to 3 sessions. Goal #3: Voice evaluation. Education - Patient has Indicated that the Following Identified Educational Needs: Language Barrier, Cognitively Impaired - Patient Instruction Patient Education: Diagnosis, Treatment Plan, Diet Level Person Taught: Patient, Family Teaching Method: Discussion Response to teaching: Return demonstration
--- NOTE | 2022-05-07 13:08 | HP.SP.DC_ITS ---
ST Discharge Summary - Discharged: Discharge: Radha Brady is discharged from [facility] as of 05/07/22 as she cancelled all her appointments. She was evaluated on 03/18/22 with therapy recommended for dysphagia and voice therapy secondary to Parkinson?s disease. She attended one session along with her sister in law. She was provided with education regarding thickener and swallow exercises. Patient's volume in conversation was 57.4 dB, stimulable to 67.3 dB. She was able to sustain phonation for 12 seconds. Patient completed CTAR, effortful swallows, falsetto exercises, with direct cues to complete exercises as she is not able to complete independently. Further therapy is warranted when the patient and her family are ready. Thank you for allowing me to participate in the care of this patient.
== END 2022-04-03 19:00 | disposition home or self-care (01) ==
LOC: SP 09:30
PROVIDERS: PCP Family Medicine; Visit Provider Psychiatry & Neurology Neurology
DX: G20 Parkinson's disease (principal); R13.10 Dysphagia, unspecified
CPT/HCPCS: 92526; 92610; 92611

== ENCOUNTER → 2022-07-16 | Outpatient (CLI) | payer SELFPAY ==
[2022-07-16 15:46] LABS: Vitamin B12 679 pg/mL (211-911)
[2022-07-16 16:13] LABS: AST(SGOT) 16 U/L (15-37); Alanine Aminotransfer ALT/SGPT 16 U/L (13-56); Albumin, Serum 3.7 g/dL (3.2-5.0); Alkaline Phosphatase 77 U/L (45-117); Bilirubin, Direct 0.21 mg/dL (0.00-0.30); Globulin 3.5 g/dL (2.2-4.2); Protein, Total 7.2 g/dL (6.4-8.2)
[2022-07-21 22:12] LABS: Vitamin B1, Thiamine 134.6 nmol/L (66.5-200.0)
== END | disposition home or self-care (01) ==
LOC: MTLAB 11:27
PROVIDERS: PCP Family Medicine; Referring Provider Psychiatry & Neurology Neurology; Visit Provider Psychiatry & Neurology Neurology
DX: F03.90 Unspecified dementia, unspecified severity, without behavioral disturbance, psychotic disturbance, mood disturbance, and anxiety (principal)
CPT/HCPCS: 36415; 80076; 82607; 82746; 84425